=== PATIENT | male | born 1950 | race Caucasian/White ===

== ENCOUNTER 2024-01-11 16:06 | Outpatient (REF) | payer MEDICARE, SELFPAY | END 2024-01-11 16:07 | disposition home or self-care (01) | LOC: HO.LNP 16:06 | PROVIDERS: Visit Provider Surgery | DX: S91.109A Unspecified open wound of unspecified toe(s) without damage to nail, initial encounter (principal) | CPT/HCPCS: 87070; 87073; 87077; 87186; 87205 ==

== ENCOUNTER 2024-08-06 12:12 | Outpatient (REF) | payer MEDICARE, SELFPAY | END 2024-08-06 12:13 | disposition home or self-care (01) | LOC: HO.US 12:12 | PROVIDERS: PCP Internal Medicine; Visit Provider Internal Medicine Nephrology | DX: N18.32 Chronic kidney disease, stage 3b (principal) | CPT/HCPCS: 76775 ==

== ENCOUNTER → 2024-08-06 12:17 | Outpatient (BNV) | payer MEDICARE, SELFPAY | PROVIDERS: PCP Internal Medicine; Visit Provider Radiology Diagnostic Radiology | DX: N28.1 Cyst of kidney, acquired (principal); N20.0 Calculus of kidney | CPT/HCPCS: 76775 ==